=== PATIENT | male | born 1955 | race Caucasian/White ===

== ENCOUNTER → 2016-04-16 | Outpatient (CLI) | payer OTHER ==
--- NOTE | 2016-04-16 11:24 | US ---
Right Upper Quadrant Abdominal Sonogram History: Chronic hepatitis C Findings: The liver is mildly enlarged(18.7cm) and mildly heterogeneous. The anterior liver capsule i s undulating. There is no intra or extrahepatic biliary dilatation. There is no evidence for a hepati c mass. There is no ascites. The pancreas is unremarkable Impression: Findings of possible early cirrhosis. No hepatic mass identified.
== END ==
LOC: CIMAGING 09:04
PROVIDERS: ATTEND Internal Medicine Gastroenterology
DX: B18.2 Chronic viral hepatitis C (principal); R93.2 Abnormal findings on diagnostic imaging of liver and biliary tract
CPT/HCPCS: 76705-PO